=== PATIENT | male | born 1980 | race African-American/Black ===

== ENCOUNTER 2019-06-23 16:20 | Emergency (ER) | payer OTHER ==
[~2019-06-23] VITALS: Ht 177.8 cm; Wt 97.5 kg
[2019-06-23 16:33] VITALS: BP 119/63
[2019-06-23] MEDS ORDERED: DIPHTH,PERTUSS(ACELL),TET TOX 0.5 ML DISP.SYRIN. VAX IM ONE (16:45)
--- NOTE | 2019-06-23 16:49 | PHYS DOC ---
Past Medical History Past Medical History: No Pertinent History Past Surgical History: No Surgical History Alcohol Use: None Drug Use: Marijuana Adult General Chief Complaint Chief Complaint: FOOT INJURY PAIN HPI HPI Patient is a 38 year old male with no significant medical history who presents to the ED today with puncture wound to the left foot, patient reports he stepped on a nail today with rubber shoes on. Review of Systems Review of Systems Constitutional: Denies fever or chills [] Musculoskeletal: Denies back pain or joint pain [] Integument: Reports puncture wound to the left foot Neurologic: Denies headache, focal weakness or sensory changes [] All other systems were reviewed and found to be within normal limits, except as documented in this note. Current Medications Current Medications Current Medications Medications (Trade) Dose Ordered Sig/Marcela Start Time Stop Time Status Last Admin Dose Admin Diphtheria/ Tetanus/Acell Pertussis (Boostrix) 0.5 ml ONCE ONCE 06/23/19 16:45 06/23/19 16:47 DC Allergies Allergies Allergies Coded Allergies Type Severity Reaction Last Updated Verified No Known Drug Allergies 06/23/19 No Physical Exam Physical Exam Constitutional: Well developed, well nourished, no acute distress, non-toxic appearance. [] Skin: Warm, dry, plantar aspect of the left foot distal fourth metatarsal with a puncture wound approximately 0.3 cm. There is no drainage. Neuromuscular exam is intact to the right foot. Back: No tenderness, no CVA tenderness. [] Extremities: No tenderness, no cyanosis, no clubbing, ROM intact, no edema. [] Neurologic: Alert and oriented X 3, normal motor function, normal sensory function, no focal deficits noted. [] Psychologic: Affect normal, judgement normal, mood normal. [] Current Patient Data Vital Signs Vital Signs Date Time Temp Pulse Resp B/P (MAP) Pulse Ox O2 Delivery O2 Flow Rate FiO2 06/23/19 16:33 98.6 71 119/63 (81) 98 Room Air 98.6 EKG EKG [] Radiology/Procedures Radiology/Procedures [] Course & Med Decision Making Course & Med Decision Making Pertinent Labs and Imaging studies reviewed. (See chart for details) This is a 38-year-old male patient presenting to the ED today with a puncture wound to the left foot after stepping on a nail. Tetanus updated. Discharged on Cipro. Wound care instructions and return precautions provided. Dragon Disclaimer Gene Disclaimer This electronic medical record was generated, in whole or in part, using a voice recognition dictation system. Departure Departure Impression: Primary Impression: Puncture wound Disposition: 01 HOME, SELF-CARE Condition: STABLE Referrals: Marino RATLIFF MD (PCP) follow up with your doctor in one week Patient Instructions: Puncture Wound, [id number] Additional Instructions: You have a puncture wound to the left foot, keep the area clean and dry. You can wash your feet, and apply Neosporin to the affected area. Please complete your prescribed oral antibiotics. Follow-up with your doctor in 1-2 weeks, come back to the ED at any point symptoms worsen. You got a tetanus shot in the ED Scripts Ciprofloxacin Hcl (CIPRO) 500 Mg Tablet 1 TAB PO BID for 7 Days, #14 TAB 0 Refills Prov: BUNNY LEE APRN 06/23/19 BUNNY LEE APRN Jun 23, 2019 16:49
[2019-06-23] MEDS ORDERED: CIPR500T94 PO (16:55)
== END 2019-06-23 17:08 | disposition home or self-care (01) ==
LOC: ER 16:20
DX: S91.332A Puncture wound without foreign body, left foot, initial encounter (principal); W45.0XXA Nail entering through skin, initial encounter; Y93.89 Activity, other specified; Y92.89 Other specified places as the place of occurrence of the external cause; Y99.8 Other external cause status
CPT/HCPCS: 90471; 90715; 99283